=== PATIENT | male | born 1965 | race Two or more races ===

== ENCOUNTER 2018-09-19 16:16 | Emergency (ER) | payer MEDICAID, OTHER ==
[~2018-09-19] VITALS: Ht 152.4 cm; Wt 83.0 kg
[~2018-09-19 16:16] MED LIST: CYCLOBENZAPRINE10 MG ORAL; IBUPROFEN600 MG ORAL; PROMETHAZINE-C118 M1 ORAL; TAMIFLU75 MG ORAL
[2018-09-19] MEDS ORDERED: Tetracaine 0.5% Opth 4ml Soln RIGHT EYE ONE (16:45)
[2018-09-19] MEDS ORDERED: Fluorescein Strips RIGHT EYE ONE (16:45)
[2018-09-19 16:52] VITALS: BP 112/87
[2018-09-19] MEDS ORDERED: GENTAK5 ML RIGHT EYE (17:16)
[2018-09-19 17:22] VITALS: BP 115/75
--- NOTE | 2018-09-19 21:22 | Emergency Room Report ---
History of Present Illness General Chief Complaint: Eye Problems Source: Patient Present Illness HPI Patient is a 53-year-old male who presented after increased right eye discomfort. Patient reports having increased right eye foreign body sensation after object flew up into his eye. He denies any visual changes. He reports having increased discomfort to his eye. He denies any fever. Allergies: Coded Allergies: No Known Allergies (Unverified , 05/29/14) Patient History Past Medical History: see triage record Reviewed Nursing Documentation: PMH: Agreed; PSxH: Agreed Nursing Documentation-PMH Past Medical History: No Stated History Review of Systems All Other Systems: negative except mentioned in HPI Physical Exam Vital Signs Date Time Temp Pulse Resp B/P (MAP) Pulse Ox O2 Delivery O2 Flow Rate FiO2 09/19/18 16:27 98.1 57 16 112/85 97 Room Air General Appearance: well appearing, no apparent distress, alert, GCS 15, non- toxic Head: normocephalic, atraumatic Eyes: bilateral eye PERRL, bilateral eye EOMI, bilateral eye other - conjunctival injection ENT: hearing grossly normal, normal voice Neck: full range of motion, supple Respiratory: no respiratory distress, speaking full sentences Gastrointestinal: normal inspection, normal bowel sounds, non tender, soft Musculoskeletal: normal inspection, no calf tenderness Neurologic: normal inspection, alert, oriented x3, responsive, escalator mechanic III-XII nml as tested, normal gait Psychiatric: mood/affect normal Skin: no rash Medical Decision Making Diagnostic Impression: Primary Impression: Corneal abrasion, right ER Course Patient presented for right eye pain. Differential diagnosis included but wasn' t limited to glaucoma, iritis, corneal abrasion, bacterial conjunctivitis, viral conjunctivitis. Patient has a benign exam and does not appear to require any further imaging or laboratory testing at this time. The patient does not appear to have any evidence of a foreign body. Patient's exam with floor seen showed minimal corneal abrasion. Patient was given prescription for topical antibiotics and advised to follow-up with his eye professional in the next few days. Patient is to return if he began having worsening condition or other concerns. Last Vital Signs Date Time Temp Pulse Resp B/P (MAP) Pulse Ox O2 Delivery O2 Flow Rate FiO2 09/19/18 17:22 98.0 60 14 115/75 99 Room Air Status: improved Disposition: HOME, SELF-CARE Condition: Stable Scripts Gentamicin Sulfate* (GENTAK*) 5 Ml Drops 1 DROP RIGHT EYE Q4H, #1 DROP 0 Refills Prov: Alexander Hdz MD 09/19/18 Referrals: [facility],REFERRING (PCP) Patient Instructions: Corneal Abrasion Alexander Hdz MD Sep 19, 2018 21:22
== END 2018-09-19 17:19 | disposition home or self-care (01) ==
LOC: EMR 16:50
DX: S05.01XA Injury of conjunctiva and corneal abrasion without foreign body, right eye, initial encounter (principal); H57.11 Ocular pain, right eye; X58.XXXA Exposure to other specified factors, initial encounter; Y93.9 Activity, unspecified; Y92.9 Unspecified place or not applicable; Y99.9 Unspecified external cause status
CPT/HCPCS: 99282